=== PATIENT | female | born 1965 | race Caucasian/White ===

== ENCOUNTER 2023-03-03 08:56 | Emergency (ER) | payer OTHER, SELFPAY ==
[2023-03-03 09:02] VITALS: BP 120/74; PULSE 80; RESP 18; TEMP 37.1; O2SAT 94; BMI 34.4
--- NOTE | 2023-03-03 09:08 | XR_ITS ---
The [address] [address] Patient Name: DESTINEE AKERS MRN: [id number] date: 1965 Sex: F Assigned Patient Location: ED.MAIN Current Patient Location: Accession/Order Number: [id number] Exam Date: 03/03/2023 09:25 Report Date: 03/03/2023 10:29 At the request of: TG BURNS Procedure: XR knee RT 4V EXAM: XR knee RT 4V INDICATION: pain. COMPARISON: None. TECHNIQUE: Right knee, 4 views FINDINGS: Changes of right knee arthroplasty with components in anatomic alignment. Intact hardware without evidence of loosening. No periprosthetic fracture. No suprapatellar joint effusion. Small metallic foreign body measuring 3 mm in the anterior superficial soft tissues of the knee. No soft tissue gas. Vascular calcifications noted. XR/XR knee RT 4V IMPRESSION: 1. Right knee arthroplasty without evidence of hardware complication. 2. Tiny metallic foreign body in the anterior soft tissues of the knee. Electronically authenticated by: JUDITH OLVERA Date: 03/03/2023 10:29
[2023-03-03 09:33] LABS: Bilirubin Urine NEGATIVE (NEGATIVE); Blood Urine SMALL (NEGATIVE); Clarity Urine CLEAR (CLEAR); Color Urine LT. YELLOW (YELLOW); Glucose Urine UA NEGATIVE (NEGATIVE); Ketones Urine NEGATIVE (NEGATIVE); Leukocyte Esterase Urine LARGE (NEGATIVE); Nitrite Urine NEGATIVE (NEGATIVE); Protein Urine NEGATIVE (NEG/TRACE); Specific Gravity Urine 1.015 (1.005-1.025); Urobilinogen Urine 0.2 EU/dL (0.2-1.0); pH Urine 6.5 (5.0-9.0)
[2023-03-03 09:35] LABS: Urine Microscopic Indicated YES
[2023-03-03 09:38] LABS: WBC Urine 20-50 #/HPF (NONE SEEN)
[2023-03-03 09:39] LABS: Bacteria Urine TRACE #/HPF (NONE SEEN); Cast Seen? NONE SEEN #/LPF (NONE SEEN); Crystals Seen? None Seen #/HPF (None Seen); Mucus Urine NONE SEEN (NONE SEEN); Squamous Epithelial Cell Urine FEW #/LPF (NONE/RARE); Urine Culture Indicated YES
--- NOTE | 2023-03-03 10:40 | ED_ITS ---
HPI - General Adult General Chief complaint: Extremity Injury, Lower Stated complaint: LOWER EXTREMITY PAIN RIGHT KNEE Time Seen by Provider: 03/03/23 10:22 Source: patient Mode of arrival: walk-in History of Present Illness HPI narrative: Patient is a 57-year-old female whose presenting to the Emergency Room with months of right knee pain. Patient had a total knee surgery 5 years ago in [place]. Patient currently lives in [place], he said a [place]. Patient is currently locally to the area because she is in rehab for cocaine. Patient's had no acute injury. Patient's been having pain for 2 or 3 months, she came in today because and pain below the right knee. No new fall, no new injury, no other new acute complaints. . All systems are negative except as noted/marked. All systems reviewed and otherwise negative. . Nurses note and vital signs reviewed and patient is not hypoxic. General: The patient appears well and in no apparent distress. Patient is resting comfortably on cart. Patient is not toxic, lethargic, or listless Skin: Warm, dry, no pallor noted. There is no rash noted. No petechiae, purpura. Head: Normocephalic, atraumatic Eye: Normal conjunctiva, no drainage, EOMI. PERRL Ears, Nose, Mouth, and Throat: oral mucosa is moist. Nares patent. Cardiovascular: Regular Rate and Rhythm, no murmur, gallop, rub Respiratory: Patient is in no distress, no accessory muscle use, lungs are clear to auscultation, no wheezing, rales or rhonchi Musculoskeletal: Patient has full range of motion of all of the extremities Except to the right knee. Patient has mild to moderate tenderness to palpation distal to the right knee, over the tibial tuberosity. Patient has no redness to the knee. No signs of sepsis. Patient does have full range of motion of her right knee with mild pain distally to the right knee. No signs of any type of abscess, or infection. No pain with varus or valgus stress. no motor, sensory, or focal neurological deficits Neurological: A&O x3, normal speech Psychiatric: Cooperative Related Data Allergies Allergy/AdvReac Type Severity Reaction Status Date / Time No Known Drug Allergies Allergy Verified 03/03/23 09:01 Exam Constitutional Vital Signs, click to edit/add: Last Vital Signs Temp 98.7 F 03/03/23 09:02 Pulse 80 03/03/23 09:02 Resp 18 03/03/23 09:02 BP 120/74 H 03/03/23 09:02 Pulse Ox 94 L 03/03/23 09:02 O2 Del Method Room Air 03/03/23 09:02 Course Vital Signs Vital signs: Vital Signs Temperature 98.7 F 03/03/23 09:02 Pulse Rate 80 03/03/23 09:02 Respiratory Rate 18 03/03/23 09:02 Blood Pressure 120/74 H 03/03/23 09:02 Pulse Oximetry 94 L 03/03/23 09:02 Oxygen Delivery Method Room Air 03/03/23 09:02 Temperature 98.7 F 03/03/23 09:02 Pulse Rate 80 03/03/23 09:02 Respiratory Rate 18 03/03/23 09:02 Blood Pressure 120/74 H 03/03/23 09:02 Pulse Oximetry 94 L 03/03/23 09:02 Oxygen Delivery Method Room Air 03/03/23 09:02 Medical Decision Making MDM Narrative Medical decision making narrative: Right knee x-ray shows no acute fracture, dislocation, or acute abnormality. Patient does have a small foreign body to the superior medial aspect of the right knee, a picture actually shorter, patient is unaware of what this could be. Please see the official report. Patient is given a prescription for a 4 prong cane to help with her walking. She does have a walkerAt her current rehab facility. Patient lives in the [facility] in [place]. Patient was educated how she can call her insurance and find a local orthopedic surgeon or follow-up for her 2-3 month right knee pain. No new injury. No new swelling. No signs of infection. Patient continue Tylenol, anti-inflammatories, ice and follow-up. Lab Data Labs: Lab Results 03/03/23 Range/Units 09:10 Urine Color Lt. yellow (YELLOW) Urine Clarity Clear (CLEAR) Urine pH 6.5 (5.0-9.0) Ur Specific [place] 1.015 (1.005-1.025) Urine Protein Negative (NEG/TRACE) mg/dL Urine Glucose (UA) Negative (NEGATIVE) mg/dL Urine Ketones Negative (NEGATIVE) mg/dL Urine Occult Blood Small A (NEGATIVE) Urine Nitrite Negative (NEGATIVE) Urine Bilirubin Negative (NEGATIVE) Urine Urobilinogen 0.2 (0.2-1.0) EU/dL Ur Leukocyte Esterase Large A (NEGATIVE) Urine RBC 5-10 A (0-2) #/HPF Urine WBC 20-50 A (NONE SEEN) #/HPF Ur Squamous Epith Cells Few A (NONE/RARE) #/LPF Urine Crystals None seen (None Seen) #/HPF Urine Bacteria Trace A (NONE SEEN) #/HPF Urine Casts None seen (NONE SEEN) #/LPF Urine Mucus None seen (NONE SEEN) Ur Culture Indicated? Yes Discharge Plan Discharge Chief Complaint: Extremity Injury, Lower Clinical Impression: Chronic pain of right knee Patient Disposition: Home, Self-Care Condition: Fair Instructions: Chronic Pain (ED), Knee Pain (ED), P.R.I.C.E. Treatment (ED) Additional Instructions: As discussed at bedside, call your insurance company on Sunday or today to see what orthopedic surgeon that he can see in the area of [place] where he lives. Use ice 20 minutes on, 20 minutes off. Use Tylenol and anti- inflammatories needed for pain. Follow-up with orthopedic surgeon. Stand Alone Forms: Portal Instructions Referrals: Physician,Non-Staff, MD [Primary Care Provider] - 1 week
--- NOTE | 2023-03-03 10:48 | PC.NURSE ---
c/o knee pain upon arrival. xray complete and ER DR was in room explaining the test results and plan at d/c. pt observed ambulating while in ER, d/c complete
--- NOTE | 2023-03-06 13:06 | PC.NURSE ---
03/06/23 1306 pt urine c+s reviewed by dr riojas from 03/03/23 nno at this time. Juan Almazan RN
== END 2023-03-03 10:51 | disposition home or self-care (01) ==
PROVIDERS: Emergency Provider Emergency Medicine
DX: M25.561 Pain in right knee (principal); G89.29 Other chronic pain; Z96.651 Presence of right artificial knee joint
CPT/HCPCS: 73564; 81003; 81015; 87086; 87150; 87186; 99284